=== PATIENT | male | born 2000 | race African-American/Black ===

== ENCOUNTER 2021-03-26 01:32 | Emergency (ER) | payer MEDICAID, OTHER ==
[~2021-03-26] VITALS: Ht 188 cm; Wt 105.0 kg
[2021-03-26 02:39] VITALS: BP 153/61
== END 2021-03-26 02:39 | disposition home or self-care (01) ==
LOC: ER 01:41
DX: R07.0 Pain in throat (principal)
CPT/HCPCS: 70360; 99283